=== PATIENT | female | born 1970 | race Caucasian/White ===

== ENCOUNTER 2024-04-08 10:03 | Emergency (ER) | payer MEDICAID ==
[~2024-04-08] VITALS: Ht 152.4 cm; Wt 93.0 kg
[2024-04-08 10:13] VITALS: O2SAT 96
[2024-04-08 10:40] LABS: BASOPHILS % 0.6 % (0.0-2.0); HEMATOCRIT. 48.3 % (36.0-48.0); HEMOGLOBIN. 16.2 g/dL (12.0-16.0); LYMPHOCYTES % 38.9 % (20.0-50.0); MEAN CORPUSCULAR HEMOGLOBIN 30.1 pg (28.0-32.0); MEAN CORPUSCULAR HGB CONC 33.5 g/dL (31.0-37.0); MEAN CORPUSCULAR VOLUME 89.9 fL (81.0-99.0); MEAN PLATELET VOLUME 8.1 fl (7.4-10.4); MONOCYTES % 5.4 % (2.0-8.0); NEUTROPHILS % 52.1 % (40.0-76.0); PLATELET 271 x1000/uL (130-400); RED BLOOD CELL COUNT 5.37 mill/uL (4.2-5.4); RED CELL DISTRIBUTION WIDTH 14.2 % (11.6-14.6); WHITE BLOOD COUNT 10.3 x1000/uL (4.5-11.0)
[2024-04-08 10:48] LABS: CHLORIDE 103 mEq/L (98-107); POTASSIUM 4.3 mEq/L (3.5-5.1); SODIUM 138 mEq/L (136-145)
[2024-04-08 10:49] LABS: CARBON DIOXIDE 26 mEq/L (21-32)
[2024-04-08 10:50] LABS: CALCIUM 12.4 mg/dL (8.7-10.4)
[2024-04-08 10:55] LABS: GLUCOSE 129 mg/dL (70-105); UREA NITROGEN BLOOD 19 mg/dL (9-23)
[2024-04-08 10:56] LABS: ALANINE AMINOTRANSFERASE 26 IU/L (10-49); ALBUMIN 4.8 g/dL (3.2-4.8); ASPARTATE AMINOTRANSFERASE 24 IU/L (<34)
[2024-04-08 10:57] LABS: BILIRUBIN DIRECT 0.1 mg/dL (<=3.0); BILIRUBIN TOTAL 0.5 mg/dL (0.1-1.0); PROTEIN TOTAL 7.9 g/dL (6.0-8.3)
[2024-04-08] MEDS ORDERED: MORPHINE SULFATE 4 MG/ML INJ (FOR IV/IM USE) IV ONE (11:00)
[2024-04-08 11:24] LABS: HCG SCREEN NEGATIVE
[2024-04-08] MEDS ORDERED: ONDANSETRON HCL 4MG/2ML INJ IV ONE (11:30)
[2024-04-08 13:54] LABS: CLARITY URINE CLEAR (CLEAR); COLOR URINE YELLOW (YELLOW); GLUCOSE URINE NEGATIVE (NEGATIVE); KETONES URINE NEGATIVE (NEGATIVE); LEUKOCYTE ESTERASE URINE NEGATIVE (NEGATIVE); NITRITE URINE NEGATIVE (NEGATIVE); OCCULT BLOOD URINE NEGATIVE (NEGATIVE); PROTEIN URINE NEGATIVE (NEGATIVE); SPECIFIC GRAVITY URINE 1.013 (1.005-1.030); UROBILINOGEN URINE 0.2 E.U./dL (0.2-1.0)
[2024-04-08] MEDS: ONDANSETRON HCL 4MG/2ML INJ IV NR (13:58)
[2024-04-08] MEDS: MORPHINE SULFATE 4 MG/ML INJ (FOR IV/IM USE) IV NR (14:04)
[2024-04-08] MEDS ORDERED: DIATR MEGLU/DIATRIZOATE SOLN 30ML ONE (14:30)
[2024-04-08] MEDS: MAGNESIUM/ALUMINUM HYDROXIDE/SIMETHICONE 30ML UDC PO STA (15:48)
[2024-04-08] MEDS: DICYCLOMINE 10 MG/5 ML ORAL SYR PO STA (15:59)
[2024-04-08] MEDS ORDERED: IBUP-2029 MT (16:33)
[2024-04-08 18:40] VITALS: BP 134/85; PULSE 81; RESP 18; TEMP 98.7
[2024-04-08] MEDS ORDERED: IOHEXOL-300 100 ML BOTTLE ONE (19:08)
== END 2024-04-08 18:45 | disposition home or self-care (01) ==
LOC: ER 10:03
DX: K42.9 Umbilical hernia without obstruction or gangrene (principal); Z98.890 Other specified postprocedural states
CPT/HCPCS: 80076; 80048; 81003; 81025; 84703; 83690; 85025; 36415; 74177; 96374; 96375; 99285; Q9967; J2405; J2270; Q9963; Z7610